=== PATIENT | female | born 1975 | race Caucasian/White ===

== ENCOUNTER 2018-06-22 09:21 | Emergency (ER) | payer OTHER ==
[~2018-06-22] VITALS: Ht 162.6 cm; Wt 77.0 kg
--- NOTE | 2018-06-22 11:29 | PHYS DOC ---
Past History Past Medical History: Anxiety Past Surgical History: Appendectomy, Cholecystectomy, , Tonsillectomy Alcohol Use: None Drug Use: None Adult General Chief Complaint Chief Complaint: DIZZY/LIGHT HEADED HPI HPI Patient is a 42-year-old female who presents for evaluation of lightheadedness and general malaise which has been present for a few days. She reports a history of significant anxiety. When the nurse asked if the patient is possibly she starts to cry and states that she has had miscarriages in the past. She is alert and oriented 4, calm, appears to be no distress. She denies chest pain, shortness of breath, back or abdominal pain, pelvic pain/bleeding/ discharge, dysuria, fevers or chills, nausea or vomiting, diarrhea, palpitations , or syncope. She seems very anxious. Review of Systems Review of Systems Constitutional: Denies fever or chills [] Eyes: Denies change in visual acuity, redness, or eye pain [] HENT: Denies nasal congestion or sore throat [] Respiratory: Denies cough or shortness of breath [] Cardiovascular: No additional information not addressed in HPI [] GI: Denies abdominal pain, nausea, vomiting, bloody stools or diarrhea [] : Denies dysuria or hematuria [] Musculoskeletal: Denies back pain or joint pain [] Integument: Denies rash or skin lesions [] Neurologic: Denies headache, focal weakness or sensory changes [] lightheadedness present Endocrine: Denies polyuria or polydipsia [] All other systems were reviewed and found to be within normal limits, except as documented in this note. Current Medications Current Medications Current Medications Medications (Trade) Dose Ordered Sig/Dipti Start Time Stop Time Status Last Admin Dose Admin Sodium Chloride 1,000 ml @ 1,000 mls/hr Q1H 06/22/18 11:24 06/22/18 12:23 UNV Allergies Allergies Allergies Coded Allergies Type Severity Reaction Last Updated Verified Penicillins Allergy Unknown 06/22/18 Yes Physical Exam Physical Exam Constitutional: Well developed, well nourished, no acute distress, non-toxic appearance. [] Appears anxious HENT: Normocephalic, atraumatic, bilateral external ears normal, oropharynx moist, no oral exudates, nose normal. [] Eyes: PERRLA, EOMI, conjunctiva normal, no discharge. [] Neck: Normal range of motion, no tenderness, supple, no stridor. [] Cardiovascular:Heart rate regular rhythm, no murmur [] Lungs & Thorax: Bilateral breath sounds clear to auscultation [] Abdomen: Bowel sounds normal, soft, no tenderness, no masses, no pulsatile masses. [] Skin: Warm, dry, no erythema, no rash. [] Back: No tenderness, no CVA tenderness. [] Extremities: No tenderness, no cyanosis, no clubbing, ROM intact, no edema. [] Neurologic: Alert and oriented X 3, normal motor function, normal sensory function, no focal deficits noted. [] Psychologic: judgement normal, mood normal. []Appears anxious Current Patient Data Vital Signs Vital Signs Date Time Temp Pulse Resp B/P (MAP) Pulse Ox O2 Delivery O2 Flow Rate FiO2 06/22/18 09:21 98.8 76 21 100 Room Air Lab Results Laboratory Tests Test 06/22/18 10:54 06/22/18 12:31 06/22/18 13:10 White Blood Count 5.9 x10^3/uL Red Blood Count 5.17 x10^6/uL Hemoglobin 13.8 g/dL Hematocrit 41.5 % Mean Corpuscular Volume 80 fL Mean Corpuscular Hemoglobin 27 pg Mean Corpuscular Hemoglobin Concent 33 g/dL Red Cell Distribution Width 14.1 % Platelet Count 121 x10^3/uL Neutrophils (%) (Auto) 67 % Lymphocytes (%) (Auto) 25 % Monocytes (%) (Auto) 6 % Eosinophils (%) (Auto) 1 % Basophils (%) (Auto) 0 % Neutrophils # (Auto) 4.0 x10^3uL Lymphocytes # (Auto) 1.5 x10^3/uL Monocytes # (Auto) 0.4 x10^3/uL Eosinophils # (Auto) 0.1 x10^3/uL Basophils # (Auto) 0.0 x10^3/uL D-Dimer (Marce) 0.49 mg/L Sodium Level 141 mmol/L Potassium Level 3.8 mmol/L Chloride Level 105 mmol/L Carbon Dioxide Level 28 mmol/L Anion Gap 8 Blood Urea Nitrogen 9 mg/dL Creatinine 0.7 mg/dL Estimated GFR (Cockcroft-Gault) 92.7 BUN/Creatinine Ratio 13 Glucose Level 93 mg/dL Calcium Level 8.8 mg/dL Magnesium Level 2.0 mg/dL Total Bilirubin 0.2 mg/dL Aspartate Amino Transf (AST/SGOT) 47 U/L Alanine Aminotransferase (ALT/SGPT) 101 U/L Alkaline Phosphatase 69 U/L Creatine Kinase 54 U/L Creatine Kinase MB (Mass) < 0.5 ng/mL Creatine Kinase MB Relative Index 0.9 % Troponin I Quantitative < 0.017 ng/mL [id number] Natriuretic Peptide 27 pg/mL Total Protein 7.1 g/dL Albumin 3.6 g/dL Albumin/Globulin Ratio 1.0 Lipase 123 U/L Bedside Urine HCG, Qualitative hcg negative Urine Collection Type Unknown Urine Color Yellow Urine Clarity Hazy Urine pH 5.5 Urine Specific Zahl 1.010 Urine Protein Neg Urine Glucose (UA) Neg mg/dL Urine Ketones (Stick) Neg mg/dL Urine Blood Neg Urine Nitrite Neg Urine Bilirubin Neg Urine Urobilinogen Dipstick 0.2 mg/dL Urine Leukocyte Esterase Trace Urine RBC Occ /HPF Urine WBC 1-4 /HPF Urine Squamous Epithelial Cells Few /LPF Urine Bacteria Few /HPF Urine Opiates Screen Neg Urine Methadone Screen Neg Urine Barbiturates Neg Urine Phencyclidine Screen Neg Urine Amphetamine/Methamphetamine Neg Urine Benzodiazepines Screen Neg Urine Cocaine Screen Neg Urine Cannabinoids Screen Neg Urine Ethyl Alcohol Neg Current Medications Medications (Trade) Dose Ordered Sig/Dipti Route PRN Reason Start Time Stop Time Status Last Admin Dose Admin Sodium Chloride 1,000 ml @ 1,000 mls/hr Q1H IV 06/22/18 11:45 06/22/18 12:44 DC 06/22/18 10:45 Lorazepam (Ativan) 1 mg 1X ONCE IV 06/22/18 11:45 06/22/18 11:46 DC 06/22/18 11:48 Meclizine HCl (Antivert) 25 mg ONCE ONCE PO 06/22/18 13:30 06/22/18 13:31 DC EKG EKG Normal sinus rhythm, rate of 74, normal axis, no acute ischemic findings noted, no STEMI Radiology/Procedures Radiology/Procedures [address] [address] IMAGING REPORT Signed PATIENT: JULIANNE RODRIGUEZ ACCOUNT: [id number] : 1975 LOCATION: ER AGE: 42 SEX: F EXAM STATUS: REG ER ORD. PHYSICIAN: FREDI CASTRO DO REASON: dizzy PROCEDURE: PORTABLE CHEST 1V EXAM: Chest, single view. HISTORY: Dizziness. COMPARISON: None. FINDINGS: A frontal view of the chest is obtained. There is suspected bilateral infrahilar atelectasis. There is no consolidation, pleural effusion or pneumothorax. The heart is normal in size. IMPRESSION: Suspected bilateral infrahilar atelectasis. Electronically signed by: Lisette Trent MD (06/22/2018 11:45 AM) [facility] DICTATED AND SIGNED BY: LISETTE TRENT MD DATE: 06/22/18 1145 CC: FREDI CASTRO DO; [facility] ~ Course & Med Decision Making Course & Med Decision Making Pertinent Labs and Imaging studies reviewed. (See chart for details) @2965 - patient updated on lab and imaging results. She states she is feeling better and would like to leave soon. I'll send the patient home with prn prescriptions for meclizine and Xanax. Workup today fails to reveal any emergent pathology. The patient is stable for discharge home at this time. Advised the patient to follow-up with her PCP in the next 2-3 days and to return to the Emergency Department immediately for new or worsening symptoms. Dragon Disclaimer Dragon Disclaimer This electronic medical record was generated, in whole or in part, using a voice recognition dictation system. Departure Departure: Impression: Primary Impression: Anxiety Additional Impression: Lightheaded Disposition: 01 HOME, SELF-CARE Condition: STABLE Referrals: [facility] (PCP) Patient Instructions: Anxiety and Panic Attacks, Dizziness Additional Instructions: Take the medications prescribed as needed. Return to the emergency Department immediately for new or worsening symptoms. Follow-up with your doctor in the next 2-3 days. Scripts Alprazolam (XANAX) 0.5 Mg Tablet 1 TAB PO TID, #20 TAB Prov: FREDI CASTRO DO 06/22/18 Meclizine Hcl (MECLIZINE HCL) 25 Mg Tablet 1 TAB PO PRN TID, #20 TAB Prov: FREDI CASTRO DO 06/22/18 Problem Qualifiers FREDI CASTRO DO Jun 22, 2018 11:29
[2018-06-22 11:38] LABS: BASO % 0 % (0-3); EOS # 0.1 x10^3/uL (0.0-0.7); EOS % 1 % (0-3); HEMATOCRIT 41.5 % (36.0-47.0); HEMOGLOBIN 13.8 g/dL (12.0-15.5); LYMPH # 1.5 x10^3/uL (1.0-4.8); LYMPH % 25 % (24-48); MEAN CORPUSCULAR HEMOGLOBIN 27 pg (25-35); MEAN CORPUSCULAR HGB CONC 33 g/dL (31-37); MEAN CORPUSCULAR VOLUME 80 fL (79-100); MONO # 0.4 x10^3/uL (0.0-1.1); MONO % 6 % (0-9); NEUT % 67 % (31-73); PLATELET COUNT 121 x10^3/uL (140-400); RED BLOOD COUNT 5.17 x10^6/uL (3.50-5.40); RED CELL DISTRIBUTION WIDTH 14.1 % (11.5-14.5); WHITE BLOOD COUNT 5.9 x10^3/uL (4.0-11.0)
[2018-06-22] MEDS ORDERED: IV NORMAL SALINE 1,000ML 1,000 ML IV SCH (11:45)
[2018-06-22] MEDS ORDERED: LORazepam 2 MG/ML VIAL IV ONE (11:45)
--- NOTE | 2018-06-22 11:48 | RAD ---
EXAM: Chest, single view. HISTORY: Dizziness. COMPARISON: None. FINDINGS: A frontal view of the chest is obtained. There is suspected bilateral infrahilar atelectasis. There is no consolidation, pleural effusion or pneumothorax. The heart is normal in size. IMPRESSION: Suspected bilateral infrahilar atelectasis. Electronically signed by: Lisette Alcala MD (06/22/2018 11:45 AM) [facility]
[2018-06-22 11:53] LABS: ALBUMIN 3.6 g/dL (3.4-5.0); ALK PHOS 69 U/L (46-116); ALT (SGPT) 101 U/L (14-59); ANION GAP 8 (6-14); AST (SGOT) 47 U/L (15-37); BLOOD UREA NITROGEN 9 mg/dL (7-20); BUN/CREATININE RATIO 13 (6-20); CALCIUM 8.8 mg/dL (8.5-10.1); CARBON DIOXIDE 28 mmol/L (21-32); CHLORIDE 105 mmol/L (98-107); CREATININE 0.7 mg/dL (0.6-1.0); GFR 92.7; GLUCOSE 93 mg/dL (70-99); LIPASE 123 U/L (73-393); POTASSIUM 3.8 mmol/L (3.5-5.1); SODIUM 141 mmol/L (136-145); TOTAL BILIRUBIN 0.2 mg/dL (0.2-1.0); TOTAL PROTEIN 7.1 g/dL (6.4-8.2)
--- NOTE | 2018-06-22 12:20 | EKG ---
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
[2018-06-22 12:46] VITALS: BP 117/70
[2018-06-22] MEDS ORDERED: MECLIZINE 12.5 MG TABLET. PO ONE (13:30)
[2018-06-22 13:31] LABS: AMPHETAMINE/METHAMPHETAMINE NEG (NEG); BARBITURATES NEG (NEG); BENZODIAZEPINES NEG (NEG); CANNABINOIDS NEG (NEG); COCAINE NEG (NEG); METHADONE NEG (NEG); OPIATES NEG (NEG); PHENCYCLIDINE NEG (NEG)
[2018-06-22 13:33] LABS: BACTERIA,URINE FEW /HPF (0-FEW); BILIRUBIN,URINE NEG (NEG); CLARITY,URINE HAZY; COLOR,URINE YELLOW; GLUCOSE,URINE NEG (NEG); NITRITE,URINE NEG (NEG); RBC,URINE OCC /HPF (0-2); SQUAMOUS EPITHELIAL CELL,UR FEW /LPF; UROBILINOGEN,URINE 0.2 mg/dL (0.2 mg/dL)
[2018-06-22] MEDS ORDERED: MECL25TA3 PO (13:43)
[2018-06-22] MEDS ORDERED: ALPR0.5T PO (13:43)
== END 2018-06-22 14:18 | disposition home or self-care (01) ==
LOC: ER 09:21
DX: F41.9 Anxiety disorder, unspecified (principal); R42 Dizziness and giddiness; Z88.0 Allergy status to penicillin
CPT/HCPCS: 36415; 71045; 80053; 80307; 81001; 81025; 82553; 83690; 83735; 83880; 84484; 85025; 85379; 93005; 96361; 96374; 99285; J2060; J8597; G0479; J7030